=== PATIENT | male | born 1950 | race Caucasian/White ===

== ENCOUNTER 2020-08-14 16:25 | Emergency (ER) | payer MEDICARE ==
[~2020-08-14] VITALS: Ht 172.7 cm; Wt 90.9 kg
--- NOTE | 2020-08-14 16:58 | NUR ---
[facility]IB [facility], PT WITH C/O SOB STARTING THIS AM AND PROGRESSIVELY GETTING WORSE. DENIES CP, HAS DRY COUGH. PT +ETOH LAST DRINK NOON TODAY, PT DRINKS 1-2 PINTS PER DAY. PT REQUESTING HELP TO DETOX. PT TO CARD MONITOR, BP, CONT PULSE OX. AWAITING ERP EVAL
[2020-08-14] MEDS ORDERED: THIAMINE 100MG TABLET PO ONE (17:30)
[2020-08-14] MEDS ORDERED: ACETAMINOPHEN 500 MG TABLET PO ONE (17:30)
[2020-08-14] MEDS ORDERED: PLEASE ENTER ALLERGIES MC SCH (17:30)
--- NOTE | 2020-08-14 17:36 | NUR ---
PT MEDICATED PER MAR, VSS, NO OTHER NEEDS AT THIS TIME
[2020-08-14] MEDS ORDERED: ACETAMINOPHEN 500 MG TABLET ONE (17:38)
[2020-08-14] MEDS ORDERED: THIAMINE 100MG TABLET ONE (17:44)
[2020-08-14 17:52] LABS: ALANINE AMINOTRANSFERASE 39 U/L (12-78); ALBUMIN 4.1 g/dL (3.4-5.0); ANION GAP 16 mmol/L (5-15); CALCIUM 9.9 mg/dL (8.5-10.1); CHLORIDE 103 mmol/L (98-107); CREATININE 0.93 mg/dL (0.7-1.3)
[2020-08-14 17:54] LABS: BASOPHILS % (AUTO) 1 % (0-1); EOSINOPHILS % (AUTO) 2 % (1-7); LYMPHOCYTES % (AUTO) 19 % (22-44); MEAN CORPUSCULAR HEMOGLOBIN 31.3 pg (27.5-34.5); MEAN CORPUSCULAR HGB CONC 34.3 g/dL (33.2-36.2); MEAN PLATELET VOLUME 8.6 fL (7.4-10.4); MONOCYTES % (AUTO) 8 % (2-9); NEUTROPHILS % (AUTO) 71 % (42-75); PLATELET COUNT 307 x10^3/uL (130-400); RED BLOOD COUNT 4.64 x10^6/uL (4.38-5.82); RED CELL DISTRIBUTION WIDTH 12.7 % (9.4-14.8)
[2020-08-14 17:57] LABS: ALKALINE PHOSPHATASE 99 U/L (45-117); BILIRUBIN,TOTAL 1.2 mg/dL (0.2-1.0); TOTAL PROTEIN 8.3 g/dL (6.4-8.2)
[2020-08-14 17:59] LABS: MD NO
--- NOTE | 2020-08-14 18:37 | NUR ---
PT TO IMAGING AT THIS TIME
--- NOTE | 2020-08-14 18:52 | NUR ---
REPORT FROM [facility]. PT AT CT
[2020-08-14] MEDS ORDERED: OMNIPAQUE 350 MG/ML, 75ML BOTTLE ONE (18:54)
--- NOTE | 2020-08-14 19:22 | NUR ---
TASK RN AT BS: PT C/O YA, NAUSEA AND SHAKES; STATES "I AM WITHDRAWING AND NEED MEDS." PT NAD, VSS, WCTM.
--- NOTE | 2020-08-14 19:28 | NUR ---
TASK RN: DISCUSSED WITH JOAQUÍN COBURN PT REQ FOR ANXIETY MEDS D/T PT BEING CONCERNED HE IS WITHDRAWING AT THIS TIME. PT NAD, ERP STATES WE CAN PROVIDE TAXI VOUCHER TO [facility] OR OTHER CLINIC FOR SAFE DETOX AT THIS TIME.
[2020-08-14 20:00] VITALS: BP 152/72
== END 2020-08-14 20:03 | disposition home or self-care (01) ==
LOC: ED 20:00
DX: J81.1 Chronic pulmonary edema (principal); R06.00 Dyspnea, unspecified; F10.20 Alcohol dependence, uncomplicated; I11.9 Hypertensive heart disease without heart failure; I25.2 Old myocardial infarction; F17.210 Nicotine dependence, cigarettes, uncomplicated; Y90.9 Presence of alcohol in blood, level not specified
CPT/HCPCS: 36415; 71045; 71275; 80053; 80307; 82728; 83615; 83735; 85025; 85379; 93005; 99285; 99406; Q9967